=== PATIENT | male | born 1975 | race American Indian/Alaskan Native ===

== ENCOUNTER 2021-11-29 18:13 | Emergency (ER) | payer SELFPAY ==
[2021-11-29 19:01] VITALS: BP 144/107
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
== END 2021-11-29 21:00 | disposition left against medical advice (07) ==
LOC: ED 18:13
DX: S82.891A Other fracture of right lower leg, initial encounter for closed fracture (principal); Z53.21 Procedure and treatment not carried out due to patient leaving prior to being seen by health care provider; X58.XXXA Exposure to other specified factors, initial encounter; Y93.89 Activity, other specified; Y92.89 Other specified places as the place of occurrence of the external cause; Y99.8 Other external cause status